=== PATIENT | male | born 1940 | race Caucasian/White ===

== ENCOUNTER → 2021-04-14 | Outpatient (CLI) | payer MEDICARE ==
--- NOTE | 2021-04-16 13:37 | REPVR ---
PROCEDURE INFORMATION: Exam: MR Cervical Spine Without Contrast Exam date and time: 04/14/2021 12:36 PM Age: 80 years old Clinical indication: Neck pain; Additional info: Disc like symptoms TECHNIQUE: Imaging protocol: Multiplanar magnetic resonance images of the cervical spine without contrast. COMPARISON: No relevant prior studies available. FINDINGS: Vertebrae: T1-2: There is grade 1 anterior spondylolisthesis at this level. There is degenerative disc disease including disc space narrowing and dessication. Spinal cord: Normal signal. No cord compression. C2-C3: There is disc desiccation. C3-C4: There is disc space narrowing and desiccation. There are moderate degenerative end plate changes at this level. There is a moderate disc/osteophyte complex, partial toward the right, that flattens the ventral thecal sac and compromises the right neural foramen. There is a moderate central disc protrusion. There is effacement of the ventral subarachnoid space and indentation of the ventral cervical cord. 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 There is severe right-sided neuroforaminal narrowing. There is moderate left-sided neuroforaminal narrowing. There is moderate spinal canal stenosis. C4-C5: There is disc space narrowing and desiccation. There are moderate degenerative end plate changes at this level. There is a moderate disc/osteophyte complex, partial toward the right, that flattens the ventral thecal sac and compromises the right neural foramen. 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 There is severe right-sided neuroforaminal narrowing. There is moderate left-sided neuroforaminal narrowing. There is mild/moderate spinal canal stenosis. C5-C6: There is disc space narrowing and desiccation. There are moderate degenerative end plate changes at this level. There is a moderate disc/osteophyte complex that flattens the ventral thecal sac. 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 There is moderate bilateral neural foraminal narrowing, right worse than left. C6-C7: There is disc space narrowing and desiccation. There are moderate degenerative end plate changes at this level. There is a moderate disc/osteophyte complex that flattens the ventral thecal sac. There is bilateral uncovertebral joint arthropathy, worse on the left. There is moderate bilateral neural foraminal narrowing, left worse than right. There is mild spinal canal stenosis. C7-T1: There is grade 1 anterior spondylolisthesis at this level. There is degenerative disc disease including disc space narrowing and dessication. There is a moderate disc/osteophyte complex that flattens the ventral thecal sac. There is moderate bilateral uncovertebral joint arthropathy. There is moderate bilateral neural foraminal narrowing. Soft tissues: Unremarkable. IMPRESSION: Advanced multilevel degenerative changes causing varying degrees of spinal canal and neuroforaminal narrowing. Spinal canal stenosis is most severe at C3/4 with corresponding indentation of the cervical cord. Please see details above. Electronically signed by: David Lincoln On 04/16/2021 13:36:32 PM
--- NOTE | 2021-04-16 13:46 | REPVR ---
PROCEDURE INFORMATION: Exam: MR Lumbar Spine Without Contrast Exam date and time: 04/14/2021 12:36 PM Age: 80 years old Clinical indication: Low back pain; Additional info: Disc like symptoms TECHNIQUE: Imaging protocol: Multiplanar magnetic resonance images of the lumbar spine without intravenous contrast. COMPARISON: No relevant prior studies available. FINDINGS: Vertebrae: Unremarkable. Spinal cord: Normal signal. No cord compression. L1-L2: There is mild retrolisthesis at this level. There is disc space narrowing and desiccation. There are moderate degenerative end plate changes at this level. There is a moderate disc/osteophyte complex that flattens the ventral thecal sac. There is severe bilateral neural foraminal narrowing. There is facet arthropathy and ligamentum flavum hypertrophy. L2-L3: There is degenerative disc disease including disc space narrowing and dessication. There is a moderate disc/osteophyte complex that flattens the ventral thecal sac. There is moderate/severe bilateral neural foraminal narrowing. There is facet arthropathy and ligamentum flavum hypertrophy. There is mild spinal canal stenosis. L3-L4: There is degenerative disc disease including disc space narrowing and dessication. There is a moderate disc/osteophyte complex that flattens the ventral thecal sac. There is severe bilateral neural foraminal narrowing. There is exuberant bilateral facet arthropathy and ligamentum flavum hypertrophy. There is moderate spinal canal stenosis. L4-L5: There is grade 1 anterior spondylolisthesis at this level. There is L5 spondylolysis. There is disc space narrowing and desiccation. There are moderate degenerative end plate changes at this level. There is uncovering of the intervertebral disc due to the anterolisthesis. There is severe bilateral neural foraminal narrowing. There is exuberant bilateral facet arthropathy and ligamentum flavum hypertrophy. There is moderate/severe spinal canal stenosis. L5-S1: There is effacement of the intervertebral disc at this level. There is a moderate disc/osteophyte complex that flattens the ventral thecal sac. There is severe bilateral neural foraminal narrowing. There is facet arthropathy and ligamentum flavum hypertrophy. Soft tissues: Unremarkable. IMPRESSION: Advanced multilevel degenerative changes causing varying degrees of spinal canal and neuroforaminal narrowing. Please see details above. Electronically signed by: David Lincoln On 04/16/2021 13:45:49 PM
== END ==
LOC: M PLARAD 11:39
PROVIDERS: ATTEND Chiropractor
DX: M48.02 Spinal stenosis, cervical region (principal); M48.07 Spinal stenosis, lumbosacral region; M99.03 Segmental and somatic dysfunction of lumbar region; M99.01 Segmental and somatic dysfunction of cervical region; M50.33 Other cervical disc degeneration, cervicothoracic region